=== PATIENT | male | born 1950 | race Caucasian/White ===

== ENCOUNTER → 2017-03-27 | Outpatient (CLI) | payer OTHER | LOC: FIMAGING 03-26 07:00 | PROVIDERS: ATTEND Family Medicine | DX: I65.23 Occlusion and stenosis of bilateral carotid arteries (principal) ==

== ENCOUNTER → 2017-05-05 | Outpatient (CLI) | payer OTHER | LOC: FCPNEURO 21:00 | PROVIDERS: ATTEND Internal Medicine Sleep Medicine | DX: G47.39 Other sleep apnea (principal) ==

== ENCOUNTER → 2017-06-10 | Outpatient (CLI) | payer OTHER | LOC: FCPNEURO 23:18 | PROVIDERS: ATTEND Psychiatry & Neurology Sleep Medicine | DX: G47.33 Obstructive sleep apnea (adult) (pediatric) (principal); G47.31 Primary central sleep apnea ==

== ENCOUNTER 2017-07-22 09:11 | Emergency (ER) | payer OTHER ==
--- NOTE | 2017-07-22 09:18 | EDPHY ---
HPI/HX/ROS/PE/MDM Narrative: CHIEF COMPLAINT: Lower abdominal pain. HPI: This patient is an anticoagulated (Plavix) 67 y/o male with history of CAD arriving with his complaining of lower abdominal pain. His discomfort began Neville night. He has had frequent small bowel movements since then, all diarrhea. These happen about every hour and relieve his pain slightly. Additionally, the patient began vomiting last night. In his last three bowel movements, he has noted dark stools with associated bright red blood in the toilet. He denies hematemesis. The patient denies history of GI bleeds. He has had a colonoscopy in the past couple years which was negative for diverticulosis or polyps. He denies fever, chest pain, shortness of breath, dysuria, hematuria, or other associated symptoms. REVIEW OF SYSTEMS: Aside from elements discussed in the HPI, a comprehensive 10-point review of systems was reviewed and is negative. PMH: CAD s/p CABG and 7 stent placements. Hyperlipidemia. SOCIAL HISTORY: . at bedside. Lives in [place]. Retired. PHYSICAL EXAM: General:Patient is alert, in no acute distress. Non-toxic appearing. ENT:Eyes are normal to inspection. ENT inspection normal. Neck: Normal inspection. Full range of motion. Respiratory:No respiratory distress. Breath sounds normal bilaterally. Cardiovascular: Regular rate and rhythm. Strong peripheral pulses. Normal cap refill. Abdomen: Moderate tenderness, primarily in the mid lower abdomen. There are no peritoneal signs. There are normal bowel sounds. Back: Normal to inspection. No tenderness to palpation. Skin: Normal color. No rash. Warm and dry. Extremities: Normal appearance. Full range of motion. Neuro: Oriented x3. Normal motor function. Normal sensory function. ED Course: Anticoagulated 67 y/o male presents with lower abdominal pain, vomiting, diarrhea, and reported blood in his stool. His abdomen is moderately tender on exam, particularly in the mid lower region. IV established. Plan for labs including CBC, chemistries, UA. Plan for stool occult blood test if patient can provide a sample. Plan to administer 1L IV NS. Pending laboratory results, plan for CT abdomen/pelvis. 10:[address], the patient complained of a brief episode of chest pain. Plan for EKG, additional labs including Troponin. EKG was ordered and interpreted by myself. Please see [facility] system for official reading. Sinus rhythm, rate 51. 10:[address] Lucio, radiologist. CT abdomen/pelvis shows evidence of colitis. No ischemia. Reviewed laboratory studies. Troponin negative. Laboratory studies otherwise unremarkable. 10:40 Stool sample obtained. Plan for GI pathogen / occult blood test. Stool sample positive for occult blood. GI pathogen PCR pending. 12:55 Reassessed patient. Discussed results and recommended admission. The patient declines and would like to be discharged home. I strongly recommended admission, but he continues to wish to leave. Plan to discharge with referral to GI and instructions to follow up tomorrow without fail. Return precautions discussed. He is comfortable with this plan. He understands etiology of his colitis is unknown. Lactate is normal and CT shows no limitation of flow to suggest ischemic colitis. Stool PCR negative. 1315: Prior to discharge, patient reports that he had a large bloody stool. VS normal. I re-examined him and discussed options with him. I strongly recommended admission to the hospital again, particular given this new complaint and sign that GI bleed may be worsening. He states that since admission will likely be observation, [facility] won't pay for the visit and he can't afford the payment. I expressed to him that he is at risk for worsening GI bleed, worsening pain, infection, need for procedure or possibly . The patient is also at high risk for cardiac issues given CAD with multiple stents so I am hesitant to discontinue his anti-platelet therapy as there are no current signs of severe blood loss or shock, but he understands this treatment makes him even higher risk for GI bleed. The patient promises to return to the ED for any worsening of condition. I will not sign the patient out AMA in order to preserve the doctor-patient relationship. Patient understands we would be happy to re-evaluate him at any time. - Data Points Imaging Results: Imaging Impressions Abdomen CT 07/22/17 09:55 Impression: 1. Findings consistent with colitis are noted predominantly involving the transverse colon. No definite evidence for significant mesenteric arterial occlusive disease. 2. Scattered colonic diverticulosis without diverticulitis. 3. Arterial calcifications noted as detailed above. 4. See above report for additional findings. Results called and discussed with Maximo Segovia MD on 07/22/2017 at 10:46 Imaging: Discussed imaging studies w/ bingo caller Radiologist Laboratory Results: Laboratory Results 07/22/17 09:26 07/22/17 09:26 07/22/17 07/22/17 07/22/17 12:35 10:45 10:45 WBC RBC Hgb Hct MCV MCH MCHC RDW Plt Count MPV Neut % (Auto) Lymph % (Auto) [place] % (Auto) Eos % (Auto) Baso % (Auto) Nucleat RBC Rel Count Absolute Neuts (auto) Absolute Lymphs (auto) Absolute Monos (auto) Absolute Eos (auto) Absolute Basos (auto) Absolute Nucleated RBC Immature Gran % Immature Gran # VBG Lactic Acid 1.0 mmol/L mmol/L (0.7-2.1) Sodium Potassium Chloride Carbon Dioxide Anion Gap BUN Creatinine Estimated GFR Glucose Calcium Troponin I Urine Color YELLOW Urine Appearance CLEAR Urine pH 5.0 (5.0-7.5) Ur Specific [place] > 1.035 H (1.002-1.030) Urine Protein NEGATIVE (NEGATIVE) Urine Ketones NEGATIVE (NEGATIVE) Urine Blood 1+ H (NEGATIVE) Urine Nitrate NEGATIVE (NEGATIVE) Urine Bilirubin NEGATIVE (NEGATIVE) Urine Urobilinogen NEGATIVE EU EU (0.2-1.0) Ur Leukocyte Esterase NEGATIVE (NEGATIVE) Urine RBC 1-3 /hpf /hpf (0-3) Urine WBC 1-3 /hpf /hpf (0-3) Ur Epithelial Cells NONE SEEN /lpf /lpf (NONE-1+) Urine Mucus TRACE /lpf /lpf (NONE-1+) Urine Glucose NEGATIVE (NEGATIVE) Stool Occult Bld Scrn POSITIVE H (NEGATIVE) 07/22/17 07/22/17 07/22/17 09:26 09:26 09:26 WBC 10.71 10^3/uL H 10^3/uL (3.80-9.50) RBC 4.57 10^6/uL 10^6/uL (4.40-6.38) Hgb 15.0 g/dL g/dL (13.7-17.5) Hct 42.0 % % (40.0-51.0) MCV 91.9 fL fL (81.5-99.8) MCH 32.8 pg pg (27.9-34.1) MCHC 35.7 g/dL g/dL (32.4-36.7) RDW 12.8 % % (11.5-15.2) Plt Count 225 10^3/uL 10^3/uL (150-400) MPV 9.1 fL fL (8.7-11.7) Neut % (Auto) 73.1 % % (39.3-74.2) Lymph % (Auto) 15.7 % % (15.0-45.0) [place] % (Auto) 8.5 % % (4.5-13.0) Eos % (Auto) 1.7 % % (0.6-7.6) Baso % (Auto) 0.5 % % (0.3-1.7) Nucleat RBC Rel Count 0.0 % % (0.0-0.2) Absolute Neuts (auto) 7.84 10^3/uL H 10^3/uL (1.70-6.50) Absolute Lymphs (auto) 1.68 10^3/uL 10^3/uL (1.00-3.00) Absolute Monos (auto) 0.91 10^3/uL H 10^3/uL (0.30-0.80) Absolute Eos (auto) 0.18 10^3/uL 10^3/uL (0.03-0.40) Absolute Basos (auto) 0.05 10^3/uL 10^3/uL (0.02-0.10) Absolute Nucleated RBC 0.00 10^3/uL 10^3/uL (0-0.01) Immature Gran % 0.5 % % (0.0-1.1) Immature Gran # 0.05 10^3/uL 10^3/uL (0.00-0.10) VBG Lactic Acid Sodium 140 mEq/L mEq/L (135-145) Potassium 4.3 mEq/L mEq/L (3.5-5.2) Chloride 106 mEq/L mEq/L (97-110) Carbon Dioxide 24 mEq/l mEq/l (22-31) Anion Gap 10 mEq/L mEq/L (8-16) BUN 14 mg/dL mg/dL (7-23) Creatinine 0.7 mg/dL mg/dL (0.7-1.3) Estimated GFR > 60 Glucose 97 mg/dL mg/dL (70-100) Calcium 8.9 mg/dL mg/dL (8.5-10.4) Troponin I < 0.012 ng/mL ng/mL (0.000-0.034) Urine Color Urine Appearance Urine pH Ur Specific [place] Urine Protein Urine Ketones Urine Blood Urine Nitrate Urine Bilirubin Urine Urobilinogen Ur Leukocyte Esterase Urine RBC Urine WBC Ur Epithelial Cells Urine Mucus Urine Glucose Stool Occult Bld Scrn Medications Given: Discontinued Medications Sodium Chloride (Ns) 1,000 mls @ 0 mls/hr IV EDNOW ONE; Wide Open PRN Reason: Protocol Stop: 07/22/17 09:22 Last Admin: 07/22/17 09:32 Dose: 1,000 mls Microbiology Results: MICROBIOLOGY 07/22/17 10:45 Stool Gastrointestinal Tract Panel (PCR) - Final No Organism Detected General Time Seen by Provider: 07/22/17 09:15 Initial Vital Signs: Initial Vital Signs Temperature (C) 36.3 C 07/22/17 09:14 Heart Rate 65 07/22/17 09:14 Respiratory Rate 20 07/22/17 09:14 Blood Pressure 150/103 H 07/22/17 09:14 O2 Sat (%) 97 07/22/17 09:14 O2 Delivery Mode Room Air Allergies/Adverse Reactions: No Known Allergies Allergy (Verified 07/22/17 09:13) Home Medications: Medication Instructions Recorded Aspirin [Aspirin 81mg (OTC)] 81 mg PO DAILY 11/20/11 Carvedilol [Coreg (RX)] 6.25 mg PO BIDMEAL 11/20/11 Cholecalciferol Vit D3 [Vitamin D3 1,000 units PO HS 11/20/11 1000 units (OTC)] Clopidogrel Bisulfate [Plavix (RX)] 75 mg PO DAILY 11/20/11 Glucosamine Sulfate [Glucosamine 500 mg PO HS 11/20/11 Sulfate 500 MG (OTC)] Multivitamins [Multivitamin (OTC)] 1 each PO DAILY 11/20/11 [place]-3 Fatty Acids/Fish Oil [Fish 1 each PO BID 11/20/11 Oil 1,000 mg Capsule] Rosuvastatin Calcium [Crestor 20mg 20 mg PO HS 11/20/11 (RX)] Ubidecarenone [Co Q-10] 100 mg PO DAILY 11/20/11 *Pharmacist Completed 01/10/13 01/10/13 Md Huber 01/1001/10/13 traMADol [Ultram 50 mg (*)] 50 mg PO Q6 #10 tab 02/14/13 Departure - Departure Disposition: Home, Routine, Self-Care Clinical Impression: Colitis, GI bleed Condition: Good Instructions: Colitis (ED) Additional Instructions: 1. Follow up with a GI specialist tomorrow without fail. Call first thing in the morning for an appointment. We have referred you to our gastroenterology specialist forestry contractor. 2. Return to the emergency department immediately for worsening pain, weakness, fainting, blood in your stool or vomit, uncontrollable vomiting or diarrhea, or other worsening of condition. Referrals: Fazal Gonsalez MD [Primary Care Provider] - As per Instructions Ronan Lombardo MD [Medical Doctor] - As per Instructions Report Scribed for: Maximo Segovia Report Scribed by: Ana María Arguelles Date of Report: 07/22/17 Time of Report: 09:18 Physician Review and Approval Statement: Portions of this note were transcribed by an ED scribe. I personally performed the history, physical exam, and medical decision making; and confirm the accuracy of the information in the transcribed note.
[2017-07-22] MEDS ORDERED: NS 1,000 ML IV ONE (09:21)
[2017-07-22 09:32] LABS: PLATELET COUNT 225 10^3/uL (150-400)
[2017-07-22] MEDS ORDERED: IOPAMIDOL (ISOVUE-300) 100 ML BTL ONE (10:01)
--- NOTE | 2017-07-22 10:32 | CPEKG ---
Heart Rate: 51 RR Interval: 1176 P-R Interval: 164 QRSD Interval: 108 QT Interval: 488 QTC Interval: 450 P [place]: 34 QRS [place]: -17 T Wave [place]: 23 EKG Severity - ABNORMAL ECG - EKG Impression: SINUS RHYTHM EKG Impression: INCOMPLETE RIGHT BUNDLE BRANCH BLOCK Electronically Signed By: Maximo Segovia 22-Jul-2017 14:34:20
[2017-07-22 12:35] VITALS: TEMP 97.9
[2017-07-22 13:23] VITALS: BP 129/71; PULSE 52; RESP 16; O2SAT 96
== END 2017-07-22 13:24 | disposition home or self-care (01) ==
DX: K52.9 Noninfective gastroenteritis and colitis, unspecified (principal); K92.2 Gastrointestinal hemorrhage, unspecified; E86.9 Volume depletion, unspecified; I25.810 Atherosclerosis of coronary artery bypass graft(s) without angina pectoris; Z79.82 Long term (current) use of aspirin; Z95.5 Presence of coronary angioplasty implant and graft
CPT/HCPCS: 74177; 93005; 99285; Q9967

== ENCOUNTER → 2017-09-28 | Outpatient (CLI) | payer OTHER ==
[~2017-09-28] MED LIST: GADOBUTROL 10 ML VIAL IVP ONE
== END ==
LOC: FIMAGING 06:36
PROVIDERS: ATTEND Physician Assistant
DX: Z53.29 Procedure and treatment not carried out because of patient's decision for other reasons (principal); R10.84 Generalized abdominal pain; K92.1 Melena; R19.7 Diarrhea, unspecified; K52.9 Noninfective gastroenteritis and colitis, unspecified; I25.10 Atherosclerotic heart disease of native coronary artery without angina pectoris
CPT/HCPCS: A9585; C8902; 82565-PO